=== PATIENT | female | born 1965 | race Hispanic/Latino ===

== ENCOUNTER 2018-08-24 21:34 | Emergency (ER) | payer OTHER ==
[~2018-08-24] VITALS: Ht 152.4 cm; Wt 61.2 kg
--- NOTE | 2018-08-24 22:20 | Diagnostic Imaging Report ---
FOOT 3 VIEW LT - HOPD HISTORY: Left foot pain with trauma over the distal first metatarsal bone COMPARISON: None FINDINGS: Bones: No displaced fracture. Osseous alignment is within normal limits. Joints: The joint spaces are well-maintained. Soft tissues: Soft tissue swelling noted throughout the dorsum and plantar aspect of the forefoot. IMPRESSION: 1. No acute osseous abnormality. 2. Soft tissue edema involving the forefoot. Signed by: Dr. Mino Kelly M.D. on 08/24/2018 10:17 PM
== END 2018-08-24 23:00 | disposition home or self-care (01) ==
LOC: FSED 21:34
DX: S91.312A Laceration without foreign body, left foot, initial encounter (principal); S90.32XA Contusion of left foot, initial encounter; W20.8XXA Other cause of strike by thrown, projected or falling object, initial encounter; Y92.008 Other place in unspecified non-institutional (private) residence as the place of occurrence of the external cause
CPT/HCPCS: 99283